=== PATIENT | female | born 1970 | race Two or more races ===

== ENCOUNTER 2023-10-01 22:19 | Emergency (ER) | payer MEDICAID ==
[~2023-10-01] VITALS: Ht 157.5 cm; Wt 73.6 kg
[2023-10-01] MEDS ORDERED: METO50 PO (22:44)
[2023-10-01] MEDS ORDERED: FLUT12AE20 IH (22:44)
[2023-10-01] MEDS ORDERED: GABA-1181 PO (22:44)
[2023-10-01 23:01] VITALS: TEMP 98.9
[2023-10-01] MEDS: LORazepam 1 MG TABLET PO ONE (23:34)
[2023-10-02 01:16] LABS: AMPHET/METH SCREEN,URINE NEGATIVE (NEGATIVE); BARBITURATE SCREEN, URINE NEGATIVE (NEGATIVE); BENZODIAZEPINES SCREEN,URINE NEGATIVE (NEGATIVE); CANNABINOID SCREEN,URINE NEGATIVE (NEGATIVE); COCAINE SCREEN,URINE NEGATIVE (NEGATIVE); METHADONE SCREEN, URINE NEGATIVE (NEGATIVE); OPIATE SCREEN,URINE NEGATIVE (NEGATIVE); PHENCYCLIDINE SCREEN,URINE NEGATIVE (NEGATIVE)
[2023-10-02 01:20] LABS: ALCOHOL, URINE DRUG SCREEN NEGATIVE (NEGATIVE)
[2023-10-02 02:05] VITALS: BP 121/77; PULSE 85; RESP 18
[2023-10-02] MEDS ORDERED: LORA-999 PO (02:12)
== END 2023-10-02 04:03 | disposition home or self-care (01) ==
LOC: EMS 22:19
DX: S20.211A Contusion of right front wall of thorax, initial encounter (principal); S90.32XA Contusion of left foot, initial encounter; M54.2 Cervicalgia; M54.50 Low back pain, unspecified; Z88.4 Allergy status to anesthetic agent; Z88.5 Allergy status to narcotic agent; Z88.8 Allergy status to other drugs, medicaments and biological substances; Y04.8XXA Assault by other bodily force, initial encounter; Y93.89 Activity, other specified; Y92.89 Other specified places as the place of occurrence of the external cause; Y99.8 Other external cause status
CPT/HCPCS: 71101; 72040; 72072; 72100; 80307; 99284

== ENCOUNTER 2024-02-19 06:56 | Emergency (ER) | payer MEDICAID ==
[~2024-02-19] VITALS: Ht 157.5 cm; Wt 75.0 kg
[~2024-02-19 06:56] MED LIST: FLUT12AE20 IH; GABA-1181 PO; LORA-999 PO; METO50 PO
[2024-02-19 07:05] VITALS: TEMP 97.9
[2024-02-19] MEDS ORDERED: ROSU10TA72 PO (07:12)
[2024-02-19] MEDS: ACETAMINOPHEN 500 MG TABLET PO ONE (08:10)
[2024-02-19] MEDS: METHOCARBAMOL 500 MG TABLET PO ONE (08:11)
[2024-02-19] MEDS: KETOROLAC TROMETHAMINE 30 MG/ML VIAL IM ONE (08:12)
[2024-02-19] MEDS ORDERED: METH-812 PO (09:01)
[2024-02-19 09:45] VITALS: BP 106/62; PULSE 80; RESP 18; O2SAT 100
== END 2024-02-19 09:57 | disposition home or self-care (01) ==
LOC: EMS 07:01
DX: M54.2 Cervicalgia (principal); M54.50 Low back pain, unspecified; Z98.890 Other specified postprocedural states; J45.909 Unspecified asthma, uncomplicated; Z79.51 Long term (current) use of inhaled steroids; Z79.899 Other long term (current) drug therapy; Z88.5 Allergy status to narcotic agent; V89.2XXA Person injured in unspecified motor-vehicle accident, traffic, initial encounter; Y93.89 Activity, other specified; Y92.89 Other specified places as the place of occurrence of the external cause; Y99.8 Other external cause status
CPT/HCPCS: 99283; 84443; 36415; 96372; J1885

== ENCOUNTER 2024-06-05 17:34 | Emergency (ER) | payer MEDICAID ==
[~2024-06-05] VITALS: Ht 157.5 cm; Wt 75.0 kg
[~2024-06-05 17:34] MED LIST changes: -GABA-1181 PO; -LORA-999 PO; +METH-812 PO; +ROSU10TA72 PO
[2024-06-05 18:45] VITALS: BP 136/72; PULSE 92; RESP 16; TEMP 97.6; O2SAT 99
[2024-06-05] MEDS: KETOROLAC TROMETHAMINE 60 MG/2 ML VIAL IM ONE (18:49)
[2024-06-05] MEDS: GABAPENTIN 100 MG CAPSULE PO ONE (19:34)
[2024-06-05] MEDS: ACETAMINOPHEN/CODEINE 300-30 MG TABLET PO ONE (19:34)
[2024-06-05] MEDS: IBUPROFEN 200 MG TABLET PO ONE (19:35)
[2024-06-05] MEDS ORDERED: FLUC150T61 PO (21:02)
[2024-06-05] MEDS ORDERED: TERC45CR VG (21:02)
[2024-06-05] MEDS ORDERED: IBUP-45 PO (21:02)
[2024-06-05] MEDS ORDERED: GABA-1216 PO (21:02)
[2024-06-05] MEDS ORDERED: ACET-2080 PO (21:02)
== END 2024-06-05 22:50 | disposition home or self-care (01) ==
LOC: EMS 17:34
DX: S23.3XXA Sprain of ligaments of thoracic spine, initial encounter (principal); G89.4 Chronic pain syndrome; Z88.5 Allergy status to narcotic agent; Z79.51 Long term (current) use of inhaled steroids; Z79.899 Other long term (current) drug therapy; X58.XXXA Exposure to other specified factors, initial encounter; Y93.89 Activity, other specified; Y92.89 Other specified places as the place of occurrence of the external cause; Y99.8 Other external cause status
CPT/HCPCS: 99285; 76856; 72170; 96372; J1885

== ENCOUNTER 2025-01-22 21:31 | Emergency (ER) | payer MEDICAID ==
[~2025-01-22] VITALS: Ht 157.5 cm; Wt 167.0 kg
[~2025-01-22 21:31] MED LIST changes: +ACET-2080 PO; +FLUC150T61 PO; +GABA-1216 PO; +IBUP-45 PO; -ROSU10TA72 PO; +ROSU10TA98 PO; +TERC45CR VG
[2025-01-22 22:10] VITALS: TEMP 98.1
[2025-01-22] MEDS: KETOROLAC TROMETHAMINE 30 MG/ML VIAL IM ONE (23:09)
[2025-01-22] MEDS: ACETAMINOPHEN 500 MG TABLET PO ONE (23:09)
[2025-01-22] MEDS: CYCLOBENZAPRINE HCL 10 MG TABLET PO ONE (23:09)
[2025-01-22 23:55] LABS: PLATELET COUNT (AUTO) 285 K/uL (150-450); RED BLOOD CELL COUNT(AUTO) 4.29 MIL/uL (4.00-5.20); RED CELL DISTRIBUTION WIDTH 14.2 % (11.5-14.5); WHITE BLOOD COUNT (AUTO) 6.0 K/uL (4.5-11.0)
[2025-01-23 00:03] LABS: CALCIUM, TOTAL 9.0 mg/dL (8.8-10.5); CREATININE 0.77 mg/dL (0.60-1.30); GLOMERULAR FILTR. RATE CALC > 60 mL/min (>60); GLUCOSE,RANDOM 97 mg/dL (70-110); SODIUM SERUM 141 mmol/L (136-145); UREA NITROGEN, BLOOD 14 mg/dL (7-18)
[2025-01-23] MEDS ORDERED: CYCL-448 PO (01:57)
[2025-01-23 01:58] VITALS: BP 125/74; PULSE 71; RESP 16; O2SAT 97
== END 2025-01-23 02:14 | disposition home or self-care (01) ==
LOC: EMS 21:31
DX: G89.29 Other chronic pain (principal); M54.50 Low back pain, unspecified; J45.909 Unspecified asthma, uncomplicated; I48.91 Unspecified atrial fibrillation; D64.9 Anemia, unspecified; R06.02 Shortness of breath; Z79.51 Long term (current) use of inhaled steroids; Z79.899 Other long term (current) drug therapy; Z88.5 Allergy status to narcotic agent
CPT/HCPCS: 99283; 80048; 83880; 85025; 36415; 96372; J1885